=== PATIENT | male | born 1950 | race Caucasian/White ===

== ENCOUNTER 2017-12-11 18:46 | Inpatient (IN) ==
[2017-12-11] MEDS ORDERED: *HR* Midazolam HCl 2 MG/2 ML VIAL ONE (18:59)
[2017-12-11] MEDS ORDERED: *HR* FentaNYL (PF) 100 MCG/2 ML VIAL ONE (18:59)
[2017-12-11] MEDS ORDERED: Aspirin 81 MG TAB.CHEW ONE (19:01)
[2017-12-11] MEDS ORDERED: Verapamil 5 MG/2 ML VIAL ONE (19:01)
[2017-12-11] MEDS ORDERED: Tirofiban 12.5 MG/250ML 12.5 MG/250 ML BAG ONE (19:04)
[2017-12-11] MEDS ORDERED: ISOVUE-370 200 ML INFUS..BTL IV ONE ×2 (19:04→19:45)
[2017-12-11] MEDS ORDERED: *HR* Atropine Sulfate 1 MG/10 ML SYRINGE ONE (19:07)
[2017-12-11] MEDS ORDERED: 0.9 % Sodium Chloride 1,000 ML ONE ×2 (19:14→19:45)
[2017-12-11] MEDS ORDERED: *HR* Ticagrelor 90 MG TABLET ONE (19:27)
[2017-12-11] MEDS ORDERED: Heparin 1,000 UNITS/500 mL 500 ML ONE (19:45)
[2017-12-11] MEDS ORDERED: *HR* Heparin 10,000 UNIT/10 ML VIAL ONE (19:45)
[2017-12-11] MEDS ORDERED: Nitroglycerin 1,000 MCG/10 ML VIAL IV ONE (19:46)
--- NOTE | 2017-12-11 19:47 | Invasive Diagnostic Lab Proc ---
Name: Fransico Costello Date of Study: 12/11/2017 Date: 1950 Ht: 67.0in Medical Record#: [id number] Age: 67 Wt: 180.34lb Gender: Male BSA: 1.94 Order #: [id number] BMI: 28.24 Physicians Procedure Physician: Lorenzo Padilla MD, [facility] Referring MD: Referring MD: Staff Name Position Time In Nimisha Rhoades RN Alternative Dispute Resolution Mediator 06:59 PM Roberto Jim RN Alternative Dispute Resolution Mediator 06:59 PM Sangeetha Archer RN Nurse 06:59 PM Aura Wren RN Monitor 06:59 PM Sites, Merline RT (R) Scrub 06:59 PM Indications Indication STEMI Procedures Performed Procedure L HRT ARTERY/VENTRICLE ANGIO PRQ CARD URSZULA STENT W/ANGIO 1 VSL Pre-Procedure Checklist Informed consent is complete signed and on chart. H&P is on chart. ID band is on and ID verified with patient. Patient NPO for procedure The procedure was described for the patient and questions were answered. Blood Pressure: 166/84 ECG is on chart. Rhythm: Sinus Bradycardia Plan of Care Patient will tolerate the procedure without complications. Adequate level of comfort will be maintained. Hemodynamics will remain stable Patient will recover from procedure without complications. Respiratory function will be maintained. Cardiac rhythm will remain stable. Patient temperature will be maintained. Patient and/or family have verbalized understanding of the procedure. Patient Education Chief Complaint/Reason for Test: Cardiac Cath Developmental Category: Geriatric (65+ years) Developmentally Appropriate for Age: Yes Learning Barriers: None Education Needs: Procedure Education Method: Verbal Information Taught: Cardiac Cath Educational Evaluation: Able to repeat information Intravenous Access Time IV Size Location DC'd Fluid/Drip Rate Units RN 06:50 PM 20g 1 09/19" Patent On Arrival Lt Arm Nimisha Rhoades RN Allergies [email or web address] Unable to Assess Vital Signs Time BP (mmHg) HR (bpm) O2 Sat. RR (bpm) LOC 07:01 PM / % 5 = Fully awake and oriented or at pre-proc level 07:01 PM / % 5 = Fully awake and oriented or at pre-proc level 06:59 PM 166 / 84 62 97 % 15 07:03 PM 152 / 138 66 93 % 26 07:08 PM 129 / 66 49 96 % 18 07:13 PM 153 / 81 78 99 % 14 07:16 PM 107 / 63 90 98 % 11 07:18 PM 126 / 67 72 97 % 23 07:23 PM 119 / 65 69 96 % 29 07:29 PM 124 / 68 67 98 % 12 07:34 PM 136 / 75 % Procedural Medications Time Medication Dose Units Method Given By 07:00 PM Oxygen 2 L/min nasal cannula Nimisha Rhoades RN 07:01 PM Lidocaine 2% 0.5 ml Subcutaneous Lorenzo Padilla MD, FACC 07:01 PM Aspirin (81mg) 324 mg Orally Nimisha Rhoades RN 07:02 PM Versed 2 mg Intravenous Roberto Jim RN 07:02 PM Fentanyl 50 mcg Intravenous Roberto Jim RN 07:03 PM Heparin 4000 units Nitroglycerin 200 mcg Verapamil 2.5 mg Intraarterial Lorenzo Padilla MD, FACC 07:08 PM Aggrastat Bolus: 46 ml Intravenous Roberto Jim RN 07:09 PM Aggrastat 12.5mg/250ml 16.5 ml/hr Intravenous Roberto Jim RN 07:10 PM Atropine 1 mg Intravenous Roberto Jim RN 07:29 PM Brilinta 180 mg Orally Roberto Jim RN Kathryn Score Preprocedure Postprocedure Activity 2- Moves 4 extremities sustained head lift Activity Circulation 2- SBP +/= 20 points of pre-anesthetic level Circulation Consciousness 2- Awake and alert oriented x 3 Consciousness O2 Saturation 2- Able to maintain O2 satruation of 92% on room air O2 Saturation Respiratory 2- Able to deep breathe and cough well Respiratory Total Score 10 Total Score Contrast Agent: Isovue Diagnostic Contrast: 105 ml Total Contrast: 105 ml Fluoro Dose: 524 mGy Procedure Log Time Note Enter By 06:57 PM Pt arrived to laboratory secretary 2 at 18:57 scoates 06:57 PM Priti paged/called 18:57. scoates 06:57 PM Priti responded and notified patient is ready 18:57 scoates 06:57 PM Physician arrived 18:57 scoates 06:57 PM Meet and greet completed scoates 06:57 PM Sign in performed according to hospital policy. scoates 06:57 PM Procedure start 18:57 scoates 06:57 PM CathStat 06:57 PM Case Start 06:57 PM Vitals capture started with the following parameters, Patient=Adult, Interval=5 min, Initial Cxngbgih=484 mmHg, Deflation Rate=3 mmHg, Cuff placed on Right Arm 06:59 PM HR=62 bpm, SLRE=934/84 mmhg, SpO2=97.0 %, Resp=15 B/min 06:59 PM Nimisha Rhoades RN Position: Alternative Dispute Resolution Mediator Time in: 18:59 scoates 06:59 PM Roberto Jim RN Position: Alternative Dispute Resolution Mediator Time in: 18:59 scoates 06:59 PM Sangeetha Archer RN Position: Nurse Time in: 18:59 scoates 06:59 PM Aura Wren RN Position: Monitor Time in: 18:59 scoates 07:00 PM Merline Paredes RT (R) Position: Scrub Time in: 18:59 scoates 07:00 PM Patient charges- Angio tray pack, Navilyst 3mm J, Pulse Oximetry and ACIST tubing and transducer scoates 07:00 PM Time: 19:00 Oxygen on at 2 L/min per nasal cannula by Nimisha Rhoades RN scoates 07:01 PM Time: 19:01 Patient comfortable and pain free: Yes scoates 07:01 PM Time: 19:01LOC: 5 = Fully awake and oriented or at pre-proc level scoates 07:01 PM Clinical Presentation: STEMI or equivalent scoates 07:01 PM Time out performed according to hospital policy scoates 07:01 PM Time: 19:01 0.5 ml Lidocaine 2% to right radial Subcutaneous Given by Lorenzo Padilla MD, [facility] scoates 07:01 PM Recorded ECG: HR=53 Condition=Condition 1 07:02 PM Time: 19:01 Aspirin (81mg) 324 mg Orally Given by Nimisha Rhoades RN scoates 07:02 PM Time: 19:02 Versed 2 mg Intravenous Given by Roberto Jim RN scoates 07:02 PM Time: 19:02 Fentanyl 50 mcg Intravenous Given by Roberto Jim RN scoates 07:03 PM Time: 19:03 Patient given 4,000 units Heparin, 200 mcg Nitroglycerin, and 2.5 mg Verapamil Intraarterial by Lorenzo Padilla MD, FACC. This is given to reduce risk of vessel spasm and thrombosis. scoates 07:03 PM Access obtained by percutaneous puncture. 6Fr 10cm Terumo Glidesheath sheath placed in right Radial artery. [id number] scoates 07:03 PM 0.035 260cm Navilyst 3mmJ wire [id number] scoates 07:03 PM HR=66 bpm, SNRJ=448/138 mmhg, SpO2=93.0 %, Resp=26 B/min 07:04 PM 6Fr JR 4 Cordis guide catheter was used to cannulate the PCI vessel successfully. reused? No scoates 07:04 PM wire removed scoates 07:04 PM 0.035 150cm VSI Nico-Torque wire [id number] scoates 07:04 PM wire removed scoates 07:05 PM Recorded Pressure: Ao, HR=60, Condition=Condition 1 (Aorta) Ao 145/78/105 07:05 PM RCA angiography performed in multiple views. scoates 07:06 PM .[address] [place] 180cm guide wire across target lesion- successful. reused? No scoates 07:06 PM Inflation device was opened. scoates 07:07 PM 2.0 mm x 12 mm Emerge Monorail balloon across target lesion- successful. reused? No scoates 07:08 PM Time: 19:08 Aggrastat Bolus: 46 ml Intravenous Given by Roberto Jim RN Weeks pump scoates 07:08 PM Balloon inflated @ 6 len for 5 seconds scoates 07:08 PM HR=49 bpm, GKFL=593/66 mmhg, SpO2=96.0 %, Resp=18 B/min, Comment=SB 07:09 PM Balloon inflated @ 8 len for 8 seconds scoates 07:09 PM Balloon inflated @ 8 len for 5 seconds scoates 07:09 PM Time: 19:09 Aggrastat 12.5mg/250ml 16.5 ml/hr Intravenous Given by Roberto Jim RN Weeks pump scoates 07:10 PM Time: 19:10 Atropine 1 mg Intravenous Given by Roberto Jim RN scoates 07:11 PM NIBP STAT measurement started. 07:11 PM Recorded ECG: HR=97 Condition=Condition 1 07:11 PM Balloon catheter removed intact. scoates 07:12 PM 2.5mm x 16mm Synergy drug-eluting stent across target lesion- successful Lot #[id number] scoates 07:13 PM HR=78 bpm, RTKO=816/81 mmhg, SpO2=99.0 %, Resp=14 B/min, Comment=SB 07:13 PM Stent deployed @ 16 len for 13 seconds scoates 07:14 PM Stent delivery system removed intact. scoates 07:15 PM NIBP STAT measurement started. 07:15 PM 3.0 mm x 15mm NC Trek Rx balloon across target lesion- successful. reused? No scoates 07:15 PM Balloon inflated @ 18 len for 24 seconds scoates 07:15 PM Balloon catheter removed intact. scoates 07:16 PM 3.5 mm x 8mm NC Emerge balloon across target lesion- successful. reused? No scoates 07:16 PM Recorded Pressure: Ao, HR=72, Condition=Condition 1 (Aorta) Ao 96/62/76 07:16 PM Time: 19:01LOC: 5 = Fully awake and oriented or at pre-proc level scoates 07:16 PM Time: 19:01 Patient comfortable and pain free: Yes scoates 07:16 PM HR=90 bpm, TVHZ=866/63 mmhg, SpO2=98.0 %, Resp=11 B/min 07:18 PM Balloon inflated @ 16 len for 10 seconds scoates 07:18 PM Recorded Pressure: Ao, HR=71, Condition=Condition 1 (Aorta) Ao 114/72/92 07:18 PM Balloon inflated @ 16 len for 10 seconds scoates 07:18 PM HR=72 bpm, CKVP=787/67 mmhg, SpO2=97.0 %, Resp=23 B/min 07:19 PM Coronary Dominance: right scoates 07:19 PM Pt very restless, moving on the table and taking deep breaths despite strict instruction to hold still. scoates 07:20 PM Balloon catheter removed intact. scoates 07:20 PM Guide wire removed intact. scoates 07:20 PM Guide catheter removed intact. scoates 07:20 PM 5Fr FL 3.5 catheter inserted over the wire [id number] scoates 07:21 PM Lesion found in Proximal RCA. Pre Stenosis: 50 Pre BROCK Flow: scoates 07:21 PM Lesion found in Mid RCA. Pre Stenosis: 100 Pre BROCK Flow: 0: No Flow/No perfusion scoates 07:21 PM Right Coronary, Right Posterior Descending Arteries with Right Posterolateral and Acute Marginal branches with 100% stenosis. If graft is supplying this area, 0 % stenosis scoates 07:21 PM Recorded Pressure: Ao, HR=70, Condition=Condition 1 (Aorta) Ao 105/65/82 07:21 PM LCA angiography performed in multiple views. scoates 07:23 PM Catheter removed scoates 07:23 PM HR=69 bpm, KXTW=467/65 mmhg, SpO2=96.0 %, Resp=29 B/min, Comment=NSR 07:24 PM 5Fr Pigtail catheter inserted over the wire [facility] scoates 07:24 PM Catheter selectively placed in left ventricle scoates 07:24 PM Bolus angiogram of left Ventricle complete: 10 ml/sec for a total of 30 mls scoates 07:24 PM Recorded Pressure: LV, HR=72, Condition=Condition 1 (Left Ventricle) LV 75/-33/-20 07:25 PM Recorded Pressure: LV, Ao, HR=63, Condition=Condition 1 (Left Ventricle) LV 127/6/16, (Aorta) Ao 125/60/84 07:25 PM Catheter removed scoates 07:26 PM Procedure completed at 19:26 scoates 07:26 PM Did you address BROCK flow and Dominance? Yes scoates 07:26 PM Sign out completed: Radiation Dose 524.11 mGy Fluoro Time: 7.0 Isovue 370 - 200ml contrast 105 ml given by Lorenzo Padilla MD, [facility]. Complications: NoneCardiac Rehab Consult needed: YesConfirmed administered medications: Yes scoates 07:26 PM Isovue 370 - 200ml,1 Bottle(s) used. scoates 07:26 PM Arterial sheath pulled, Vasc Band closure device used and was Successful S/N. scoates 07:27 PM Estimated Blood Loss: minimal scoates 07:27 PM Post ECG NSR scoates 07:27 PM Post Blood Pressure 119/65 scoates 07:27 PM 19:27 Post Pulses Rt Radial 1+ scoates 07:27 PM Information taught Cardiac Cath and PCI scoates 07:27 PM Education needs Procedure, Plan of Care, and Responsibilities of Patient in Care scoates 07:27 PM Learning barriers :None scoates 07:28 PM Education Methods Verbal scoates 07:28 PM Education evaluation Able to repeat information scoates 07:28 PM Site status No bleeding/hematoma - Rt Wrist as reported by Sites, Merline RT (R) at 19:28 scoates 07:28 PM Opsite applied scoates 07:28 PM Report given to Urvashi CRUZ Pt taken to ICU Room #12. 19:28 scoates 07:28 PM Plavix, Effient or Brilinta given Yes scoates 07:28 PM Delay to floor No scoates 07:28 PM Family placed in consult room. scoates 07:28 PM Fluoro Time: 7 scoates 07:29 PM Isovue 370 - 200ml contrast [address] Padilla scoates 07:29 PM Radiation Dose 524.11 mGy scoates 07:29 PM Time: 19:29 Brilinta 180 mg Orally Given by Roberto Jim RN scoates 07:29 PM HR=67 bpm, ZHZU=999/68 mmhg, SpO2=98.0 %, Resp=12 B/min 07:29 PM 15 ml air in Vasc Band. scoates 07:30 PM Lesion found in 1st Diagonal. Pre Stenosis: 60-70 Pre BROCK Flow: scoates 07:30 PM Lesion found in 1st Marginal. Pre Stenosis: 40 Pre BROCK Flow: scoates 07:30 PM Lesion found in Proximal Circumflex. Pre Stenosis: 80 Pre BROCK Flow: scoates 07:31 PM Circumflex, Obtuse Marginal, Left Posterior Descending, and Left Posterolateral Coronary Arteries with 80 % stenosis. If graft is supplying this area, 0 % stenosis scoates 07:31 PM Mid/Distal Left Anterior Descending Coronary Artery and diagonal branches with 60-70% stenosis. If graft is supplying this area, 0 % stenosis scoates 07:34 PM RGTD=496/75 mmhg 07:35 PM No labs available prior to procedure. Instructed to document 12.HGB in order for information to transfer from [facility] system to [email or web address] system scoates 07:36 PM Patient out of room: 19:36 scoates Complications Complication None Hemodynamics Pressures Site Systolic/A Wave Diastolic/V Wave Mean AO 145 78 105 AO 96 62 76 AO 114 72 92 AO 105 65 82 LV 75 -33 -20 LV 127 6 16 AO 125 60 84 Post Procedure Information Blood Pressure: 119/65 mmHg Rhythm: NSR Post procedural instructions were given Closure Device Time Device Success/Fail 12/11/2017 7:29:00 PM Mechanical Compression Successful Site Checks Time Location Status Staff Sheath In? Note 07:28 PM Rt Wrist No bleeding/hematoma Sites, Merline RT (R) Pulses Time Site Pre-Procedure Post-Procedure Note 7:27:00 PM Rt Radial 1+ Updated by Nimisha Hayes RN on 12/11/2017 7:41:12 PM electronically signed on 12/11/2017 7:41:34 PM with status of Final
[2017-12-11] MEDS ORDERED: Ondansetron 4 MG/2 ML VIAL IVP PRN (20:05)
[2017-12-11] MEDS ORDERED: Tirofiban 12.5 MG/250ML 12.5 MG/250 ML BAG IVC SCH (20:15)
--- NOTE | 2017-12-11 20:24 | Pre-Sedation Evaluation ---
Pre-sedation evaluation - Pre-sedation checklist Date of procedure: 12/11/17 Procedure: [facility] Recent Vitals: VS per EMR H&P (including ROS) documented in medical record: Yes Previous reaction to sedatives/anesthetics: Unknown Dietary Status: unknown Airway Assessment: Patient can open mouth completely, TMJ function normal ASA Classification *see protocol: CLASS II-Mild systemic disease, E-EMERGENCY- Add to any of the above to indicate emergent Plan of Care: Pt appropriate candidate for procedure/moderate/conscious sedation , Risks/benefits of procedure/sedation discussed w/ patient/family, If not NPO; Risk of intake outweiged by necessity to perform procedure
--- NOTE | 2017-12-11 20:27 | Cardiology History & Physical ---
Date of Encounter: 12/11/17 Time of Encounter: 08:30 Assessment and Plan (1) ST elevation myocardial infarction (STEMI) of inferior wall Current Visit: Yes Status: Acute A/R/B of LHC discussed with patient including 1% chance of /CVA/CABG/SONALI/ bleeding. Proceed with emergent LHC. Asa, brilinta, heparin to be given. EF assessment pending, cardiac rehab consult. Total critical care time: 1.5 hours The assessment and plan as outlined above was discussed with the patient and/ or family members who expressed understanding and agreement. All questions were answered. (2) Parkinson disease Current Visit: Yes Status: Acute sp stimulator. The assessment and plan as outlined above was discussed with the patient and/or family members who expressed understanding and agreement. All questions were answered. (3) Hypertension Current Visit: Yes Status: Acute Continue to monitor. The assessment and plan as outlined above was discussed with the patient and/or family members who expressed understanding and agreement. All questions were answered. Qualifiers: Hypertension type: essential hypertension Qualified Code(s): I10 - Essential (primary) hypertension History of Present Illness HPI: Mr. Costello is a 67 year old male with no previous cardiac history, Parkinson sp stimulator presents with severe epigastric discomfort starting around 4pm associated with abdominal bloating and belching as well as diaphoresis and dyspnea. Symptoms did not improve with shoulder massage by who prompted him to go to ED. EKG shows inferior current of injury at MS and transferred directly to fish hatchery laborer for intervention. Medications and Allergies 3 Allergy/AdvReac Type Severity Reaction Status Date / Time Unable to Assess Allergy Unverified 12/11/17 18:48 All Systems Review: The remainder of the systems were reviewed and are negative - Constitutional Constitutional: no chills, no fever(s) - EENT Eyes: no blurred vision, no loss of vision Nose, mouth and throat: no bleeding gums, no epistaxis - Cardiovascular Cardiovascular: dyspnea on exertion, no syncope - Respiratory Respiratory: no hemoptysis, no wheezing - Gastrointestinal Gastrointestinal: no hematemesis, no hematochezia - Genitourinary Genitourinary: no hematuria, no nocturia - Musculoskeletal Musculoskeletal: no muscle cramps, no muscle weakness - Integumentary Integumentary: no unusual bruising - Neurological Neurological: no syncope, no tingling - Psychiatric Psychiatric: no hallucinations, no panic attacks - Hematological/Lymphatic Hematologic/Lymphatic: no easy bleeding, no easy bruising Physical Examination Vital Signs, Last 4 Hours Temp Pulse Resp BP Pulse Ox 12/11/17 20:00 97.3 F L 61 16 120/57 96 General: Conversant, Other (distressed, unable to follow command) HEENT: Atraumatic, Normocephaly Neck: No JVD Cardiac: Reg Rate and Rhythm Lungs: Other (bibasilar crackles) Neuro: Alert and responsive Abdomen: Soft Skin: No rashes noted on visualized skin Musculoskeletal: No Chest Wall Tenderness Extremities: No Edema Results - EKG Interpretation EKG results cardiology: personally reviewed (inferior current of injury)
[2017-12-11] MEDS ORDERED: Nitroglycerin 0.4 MG TAB.SUBL SL PRN (20:34)
[2017-12-11 20:43] LABS: Magnesium 1.9 mg/dL (1.6-2.6)
[2017-12-11] MEDS: *HR* Ticagrelor 90 MG TABLET PO SCH (22:42)
[2017-12-11] MEDS: Gabapentin 400 MG CAPSULE PO SCH (22:46)
[2017-12-11] MEDS: Carbidopa/Levodopa 25/100 TABLET PO SCH (22:46)
[2017-12-11 23:53] LABS: Basophils % 0.3 %; Eosinophils # 0.1 K/mcL (0.0-0.6); Eosinophils % 0.4 %; Hematocrit 37.3 % (37.5-50.1); Hemoglobin 12.5 g/dL (12.9-16.9); Immature Granulocytes % 0.5 % (0-4); Immature Platelets 8.9 % (1.1-6.1); Lymphocytes # 1.1 K/mcL (0.6-4.6); Lymphocytes % 7.3 %; Mean Corpuscular HGB Conc 33.5 g/dL (31.6-35.5); Mean Corpuscular Hemoglobin 30.6 pg (28.0-33.3); Mean Corpuscular Volume 91.4 fL (83.0-100.0); Mean Platelet Volume 12.1 fL (9.4-12.4); Monocytes % 6.8 %; Neutrophils # 12.8 K/mcL (1.6-8.9); Platelet Count 168 K/mcL (140-400); Red Blood Count 4.08 M/mcL (4.19-5.50); Red Cell Distribution Width 12.8 % (11.5-14.5); Segmented Neutrophils % 84.7 %
[2017-12-12 00:04] LABS: BUN/Creatinine Ratio 20 (6-26); Blood Urea Nitrogen 18 mg/dL (8-23); Calcium 8.3 mg/dL (8.6-10.3); Carbon Dioxide 27 mEq/L (23-29); Chloride 100 mEq/L (98-107); Glucose 137 mg/dL (70-105); Osmolality,Calculated 284 (280-300); Potassium 3.7 mEq/L (3.5-5.1); Sodium 135 mEq/L (136-145); eGFR For African Americans > 60 (> 60); eGFR For Non-African Americans > 60 (> 60)
[2017-12-12 03:22] LABS: Basophils % 0.3 %; Eosinophils # 0.1 K/mcL (0.0-0.6); Eosinophils % 0.7 %; Hematocrit 40.8 % (37.5-50.1); Hemoglobin 14.3 g/dL (12.9-16.9); Immature Granulocytes % 0.3 % (0-4); Lymphocytes # 1.9 K/mcL (0.6-4.6); Lymphocytes % 15.4 %; Mean Corpuscular Hemoglobin 31.2 pg (28.0-33.3); Mean Corpuscular Volume 89.1 fL (83.0-100.0); Mean Platelet Volume 11.2 fL (9.4-12.4); Monocytes # 1.2 K/mcL (0.0-1.3); Monocytes % 9.9 %; Platelet Count 193 K/mcL (140-400); Red Blood Count 4.58 M/mcL (4.19-5.50); Red Cell Distribution Width 12.7 % (11.5-14.5); Segmented Neutrophils % 73.4 %
[2017-12-12 03:40] LABS: BUN/Creatinine Ratio 20 (6-26); Blood Urea Nitrogen 18 mg/dL (8-23); Calcium 8.9 mg/dL (8.6-10.3); Carbon Dioxide 27 mEq/L (23-29); Chloride 105 mEq/L (98-107); Glucose 123 mg/dL (70-105); Osmolality,Calculated 291 (280-300); Potassium 3.6 mEq/L (3.5-5.1); Sodium 139 mEq/L (136-145); eGFR For African Americans > 60 (> 60); eGFR For Non-African Americans > 60 (> 60)
[2017-12-12] MEDS: Metoprolol XL (24 HR) Succ 25 MG TAB.ER.24H PO SCH (06:25)
[2017-12-12] MEDS: *HR* Enoxaparin 40 MG/0.4 ML SYRINGE SQ SCH (06:38)
[2017-12-12] MEDS: *HR* Ticagrelor 90 MG TABLET PO SCH ×2 (06:38→21:26)
[2017-12-12] MEDS: Carbidopa/Levodopa 25/100 TABLET PO SCH ×5 (06:39→21:27)
[2017-12-12] MEDS: Gabapentin 400 MG CAPSULE PO SCH ×4 (06:39→21:26)
[2017-12-12] MEDS: Aspirin 81 MG TAB.CHEW PO SCH (08:09)
--- NOTE | 2017-12-12 08:41 | Cardiology Progress Note ---
Date of Encounter: 12/12/17 Time of Encounter: 08:37 Assessment and Plan (1) ST elevation myocardial infarction (STEMI) of inferior wall Current Visit: Yes Status: Acute S/p acute inferior LA. Patient received PTCA and URSZULA to the mRCA. Planing for staged PCI to the 80% stenosed ostail-proximal circumflex artery with Dr. Padilla. TTE completed and shows LVEF 60%. Normal LV chamber size and function. Mild concentric left ventricular hypertrophy. Mild left ventricular diastolic dysfunction. Normal right ventricular structure and function. Unable to estimate RVSP due to lack of TR jet. No significant valvular dysfunction. Telemetry review shows SR to sinus bradycardia. Avg HR 55 bpm. two runs VT seen. Longest was 7 beats long. Continue beta-antonette. Noted to have bradycardia. Patient reports long history of asymptomatic bradycardia. 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 Continue to monitor. There was no complication from the procedure. Denies recurrent chest pain. No complications from right radial access site. Importance of DAPT with asa and brilinta uninterrupted for minimum of one year discussed and he voiced understanding. Continue statin and BB. Cardiac rehab after staged PCI. Likely step down to floor this evening or tomorrow. (2) Parkinson disease Current Visit: Yes Status: Acute Sp deep brain stimulator stimulator. Continue home meds. (3) Hypertension Current Visit: Yes Status: Acute Continue to monitor. Qualifiers: Hypertension type: essential hypertension Qualified Code(s): I10 - Essential (primary) hypertension Discussion w patient/family: The assessment and plan as outlined above was discussed with the patient and/or family members who expressed understanding and agreement. All questions were answered. Thank you for involving us in the care of your patient. Please call with any questions. Subjective Principal diagnosis: Acute inferior LA Interval history: S/p PCI to the RCA. No complications. Objective Vital Signs, Last 4 Hours Temp Pulse Resp BP Pulse Ox 12/12/17 06:00 55 22 138/77 99 12/12/17 05:00 52 16 133/66 97 12/12/17 04:59 97.7 F General: Conversant, No Apparent Distress HEENT: Atraumatic, Normocephaly, Mucus Membranes Moist Neck: No JVD, Normal carotid pulses Cardiac: Reg Rate and Rhythm, Normal S1 and S2, No Murmur, Other (JAMES device- deep brain stimulator per patient. ) Lungs: Normal Breath Sounds, No Wheeze, Rales, Rhonchi Neuro: Alert and responsive, No focal deficits noted Abdomen: Soft, Non-Tender Skin: No rashes noted on visualized skin Musculoskeletal: No Chest Wall Tenderness Extremities: No Clubbing, No Cyanosis, No Edema, Normal Pulses, Other (No problem with right radial access site. ) Results 12/12/17 03:09 12/12/17 03:09 Lab Results 12/11/17 12/11/17 12/12/17 19:51 23:45 03:09 WBC 15.1 H 12.2 H Hgb 12.5 L 14.3 D Hct 37.3 L 40.8 Plt Count 168 193 Sodium 135 L Potassium 3.7 Chloride 100 Carbon Dioxide 27 BUN 18 Creatinine 0.92 Glucose 137 H Calcium 8.3 L Magnesium 1.9 12/12/17 03:09 WBC Hgb Hct Plt Count Sodium 139 Potassium 3.6 Chloride 105 Carbon Dioxide 27 BUN 18 Creatinine 0.90 Glucose 123 H Calcium 8.9 Magnesium [facility] report: LMCA has diffuse 30-40% stenosis. 60-70% stenosis in the 1st Diagonal. Proximal and mid LAD 30% stenosis * Circumflex There is a 80% stenosis in the ostial- Proximal Circumflex. There is a 40% stenosis in the 1st Marginal. * Right Coronary Artery There is a 40% stenosis in the Proximal RCA. There is a 16 mm long, 100% stenosis in the Mid RCA. The lesion has a BROCK flow of 0. An intervention was performed on the Mid RCA with a final stenosis of 0%. There were no lesion complications. The final BROCK flow was 3. Thrombus present - Imaging and Cardiology Echo: pending, report reviewed (LVEF 60%. Normal LV chamber size and function. Mild concentric left ventricular hypertrophy. Mild left ventricular diastolic dysfunction. Normal right ventricular structure and function. Unable to estimate RVSP due to lack of TR jet. No significant valvular dysfunction.) Cardiac cath: report reviewed - EKG Interpretation EKG results cardiology: personally reviewed Consult Discharge Plan - Plan [facility]errals: [facility] [Primary Care Provider[facility] -
--- NOTE | 2017-12-12 16:50 | Electrocardiograph Report ---
[address] [place] [address] Test Date: 2017-12-11 Pat Name: Fransico Costello Department: 109 Room: 12 Gender: M Fish And Wildlife Biologist: : 1950 Requested By: Lorenzo Padilla Order Number: [id number] Reading MD: Dhruv Dubois Measurements Intervals [place] Rate: 62 P: 63 FL: 189 QRS: 15 QRSD: 86 T: 33 QT: 390 QTc: 395 Interpretive Statements SINUS RHYTHM INFERIOR MYOCARDIAL INFARCTION, OF INDETERMINATE AGE Electronically Signed On 12-12-2017 16:48:59 EDT by Dhruv Dubois
--- NOTE | 2017-12-12 16:57 | Electrocardiograph Report ---
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 : 1950 Requested By: Lorenzo Padilla Order Number: [id number] Reading MD: Dhruv Dubois Measurements Intervals [place] Rate: 46 P: 10 TN: 195 QRS: 0 QRSD: 101 T: 33 QT: 436 QTc: 396 Interpretive Statements SINUS BRADYCARDIA INFERIOR MYOCARDIAL INFARCTION, OF INDETERMINATE AGE Electronically Signed On 12-12-2017 16:55:53 EDT by Dhruv Dubois
[2017-12-13] MEDS: Carbidopa/Levodopa 25/100 TABLET PO SCH ×2 (06:25→11:42)
[2017-12-13] MEDS: Gabapentin 400 MG CAPSULE PO SCH (06:31)
[2017-12-13] MEDS: *HR* Enoxaparin 40 MG/0.4 ML SYRINGE SQ SCH (06:38)
[2017-12-13] MEDS: Metoprolol XL (24 HR) Succ 25 MG TAB.ER.24H PO SCH (09:14)
[2017-12-13] MEDS: Aspirin 81 MG TAB.CHEW PO SCH (09:14)
[2017-12-13] MEDS: *HR* Ticagrelor 90 MG TABLET PO SCH (09:14)
--- NOTE | 2017-12-13 09:20 | Event Note ---
Date of Encounter: 12/13/17 Time of Encounter: 09:19 - Cardiology Event Note Mr. Costello is doing well. No recurrent chest pain. No recurrent VT. Will ambulate in [address] today. Step-down to tele floor. I will re-evaluate later today for possible d/c this evening.
[2017-12-13] MEDS ORDERED: hydroCHLOROthiazide 25 MG TABLET PO SCH (09:30)
[2017-12-13 09:42] LABS: Basophils % 0.4 %; Eosinophils # 0.1 K/mcL (0.0-0.6); Eosinophils % 0.9 %; Hematocrit 43.3 % (37.5-50.1); Hemoglobin 14.9 g/dL (12.9-16.9); Immature Granulocytes % 0.4 % (0-4); Lymphocytes # 1.7 K/mcL (0.6-4.6); Mean Corpuscular HGB Conc 34.4 g/dL (31.6-35.5); Mean Corpuscular Hemoglobin 30.7 pg (28.0-33.3); Mean Corpuscular Volume 89.3 fL (83.0-100.0); Mean Platelet Volume 11.7 fL (9.4-12.4); Monocytes # 0.8 K/mcL (0.0-1.3); Monocytes % 7.8 %; Neutrophils # 7.9 K/mcL (1.6-8.9); Platelet Count 172 K/mcL (140-400); Red Blood Count 4.85 M/mcL (4.19-5.50); Segmented Neutrophils % 74.5 %
[2017-12-13 10:00] LABS: BUN/Creatinine Ratio 17 (6-26); Blood Urea Nitrogen 14 mg/dL (8-23); Calcium 9.1 mg/dL (8.6-10.3); Carbon Dioxide 27 mEq/L (23-29); Chloride 107 mEq/L (98-107); Glucose 154 mg/dL (70-105); Osmolality,Calculated 290 (280-300); Potassium 3.9 mEq/L (3.5-5.1); Sodium 138 mEq/L (136-145); eGFR For African Americans > 60 (> 60); eGFR For Non-African Americans > 60 (> 60)
[2017-12-13] MEDS ORDERED: Nitroglycerin 0.4 MG TAB.SUBL SL PRN (12:05)
[2017-12-13] MEDS ORDERED: Ondansetron 4 MG/2 ML VIAL IVP PRN (12:05)
[2017-12-13 12:13] VITALS: BP 163/89
[2017-12-13] MEDS ORDERED: Gabapentin 400 MG CAPSULE PO SCH (13:00)
[2017-12-13] MEDS ORDERED: Carbidopa/Levodopa 25/100 TABLET PO SCH (14:00)
--- NOTE | 2017-12-13 15:02 | Discharge Summary ---
Orders not resulted at time of discharge: Pending orders 12/11/17 20:05 ECG 12 lead ECG [ECG] Routine Date of Encounter: 12/13/17 Time of Encounter: 14:58 - Discharge Diagnosis (1) ST elevation myocardial infarction (STEMI) of inferior wall Priority: Primary Status: Acute (2) Parkinson disease Priority: Secondary Status: Acute (3) Hypertension Priority: Secondary Status: Acute Qualifiers: Hypertension type: essential hypertension Qualified Code(s): I10 - Essential (primary) hypertension - Hospital Course Hospital course: Mr. Costello is a 67 year old male S/p acute inferior NC. Patient received PTCA and URSZULA to the [facility]. There was no complication from his procedure. Planing for staged PCI to the 80% stenosed ostial-proximal circumflex artery with Dr. Padilla next week. TTE completed and shows LVEF 60%. Normal LV chamber size and function. Mild concentric left ventricular hypertrophy. Mild left ventricular diastolic dysfunction. Normal right ventricular structure and function. Unable to estimate RVSP due to lack of TR jet. No significant valvular dysfunction. Telemetry review showed one run NSVT 7 beats long after PCI. No recurrent NSVT seen. He was started on metoprolol and tolerating well. HR noted to be in the 50 's at rest. H/o low HR in the past. He is asymptomatic. Noted to have intermittent elevated b/p HCTZ restarted today. Denies recurrent chest pain. No complications from right radial access site. Importance of DAPT with asa and brilinta uninterrupted for minimum of one year discussed and he and voiced understanding. Continue statin and BB. Cardiac rehab after staged PCI. Out-pt f/u will be scheduled with [facility]. - Time Spent with Patient Total time spent providing and/or coordinating discharge services: Greater than 30 minutes (1hr) - Discharge Medications Prescriptions: Nitroglycerin 0.4 mg SL Q5MIN PRN #25 tab.subl PRN Reason: Chest Pain Aspirin 81 mg PO DAILY #30 tab.chew Metoprolol XL (24 HR) Succ [Toprol Xl] 25 mg PO DAILY #60 tab.er.24h Rosuvastatin [Crestor] 40 mg PO HS #30 tablet Ticagrelor [Brilinta] 90 mg PO BID #60 tablet Home Medications: Carbidopa/Levodopa [Carbidopa-Levodopa 25-100 Tab] 2.5 tab PO QID 03/29/18 [ History] Entacapone [Comtan] 200 mg PO TID 12/12/17 [History] Gabapentin [Neurontin] 400 mg PO QID 12/12/17 [History] Hydrocortisone 1% CREAM [Cortaid] 1 appl TP QPM 12/12/17 [History] Ketoconazole 2% CRM [Nizoral Cream] 1 appl TP QAM 12/12/17 [History] Potassium Chloride [Klor-Con 10] 10 meq PO QAM 12/12/17 [History] hydroCHLOROthiazide [Hydrochlorothiazide] 25 mg PO DAILY 12/12/17 [History] Aspirin 81 mg PO DAILY #30 tab.chew 12/13/17 [Rx] Metoprolol XL (24 HR) Succ [Toprol Xl] 25 mg PO DAILY #60 tab.er.24h 12/13/17 [ Rx] Nitroglycerin 0.4 mg SL Q5MIN PRN #25 tab.subl 12/13/17 [Rx] Rosuvastatin [Crestor] 40 mg PO HS #30 tablet 12/13/17 [Rx] Ticagrelor [Brilinta] 90 mg PO BID #60 tablet 12/13/17 [Rx] Allergies/Adverse Reactions: 3 Allergy/AdvReac Type Severity Reaction Status Date / Time No Known Drug Allergies Allergy See Verified 12/12/17 04:07 Comments Date of admission: 12/11/17 18:51 [facility] care physician: [facility] Consults: 12/11/17 20:05 Consult to Cardiac Rehabilitation-Phase1 [CONS] Routine Comment: Reason for Consult: AMI Call Completed: Yes Consult to Nurse Navigator [CONS] Routine Comment: Discharging clinician: Jacob Nielsen Anticipated date of discharge: 12/13/17 Physical Examination Vital Signs, Last 4 Hours Temp Pulse Resp BP Pulse Ox 12/13/17 12:12 97.7 F 66 16 163/89 95 General: Conversant, No Apparent Distress HEENT: Atraumatic, Normocephaly, Mucus Membranes Moist Neck: No JVD, Normal carotid pulses Cardiac: Reg Rate and Rhythm, Normal S1 and S2, No Murmur Lungs: Normal Breath Sounds, No Wheeze, Rales, Rhonchi Neuro: Alert and responsive, No focal deficits noted Abdomen: Soft, Non-Tender Skin: No rashes noted on visualized skin Musculoskeletal: No Chest Wall Tenderness Extremities: No Clubbing, No Cyanosis, No Edema, Normal Pulses, Other (No problem with right radial access. ) - Patient Status Disposition: Home, Self-Care Condition: Good Overall status at discharge: patient is progressing back to baseline - Discharge Instructions Follow Up With: Lornezo Padilla MD [Partnered Physician] - (OFFICE WILL CALL PATIENT AT HOME WITH FOLLOW UP APPOINTMENT) [facility] Provider[facility] - 12/23/17 10:30 am ([place]) Additional Instructions: [facility] will set up out-pt stent placement with Dr. Padilla next week. - Diet and Activity Activity: other Diet: low fat, low cholesterol
[2017-12-13] MEDS ORDERED: *HR* Ticagrelor 90 MG TABLET PO SCH (21:00)
[2017-12-14] MEDS ORDERED: *HR* Enoxaparin 40 MG/0.4 ML SYRINGE SQ SCH (06:00)
[2017-12-14] MEDS ORDERED: Aspirin 81 MG TAB.CHEW PO SCH (09:00)
[2017-12-14] MEDS ORDERED: Ketoconazole 2% CRM 15 GM TUBE TP SCH (09:00)
[2017-12-14] MEDS ORDERED: Metoprolol XL (24 HR) Succ 25 MG TAB.ER.24H PO SCH (09:00)
[2017-12-14] MEDS ORDERED: hydroCHLOROthiazide 25 MG TABLET PO SCH (09:00)
== END 2017-12-13 16:15 | disposition home or self-care (01) | DRG 247 ==
LOC: EDBD → ICNU 18:51 → 2NNU 12-13 12:06
PROVIDERS: ADMIT Emergency Medicine; ATTEND Emergency Medicine